=== PATIENT | female | born 1980 | race Caucasian/White ===

== ENCOUNTER 2023-01-19 14:24 | Outpatient (CLI) | payer OTHER | END 2023-01-19 14:38 | disposition home or self-care (01) | LOC: RAD 14:24 | PROVIDERS: ATTEND Orthopaedic Surgery | DX: M25.511 Pain in right shoulder (principal); M25.572 Pain in left ankle and joints of left foot; M25.551 Pain in right hip; M25.552 Pain in left hip; M54.59 Other low back pain ==